=== PATIENT | female | born 1960 | race Caucasian/White ===

== ENCOUNTER → 2021-08-10 | Emergency (ER) | payer MEDICAID ==
[~2021-08-10] VITALS: Ht 152.4 cm; Wt 81.6 kg
[~2021-08-10] MED LIST: CLIN-22 PO; FLOEARD LEFT EYE; HYDR-3917 PO
[2021-08-10 06:15] VITALS: BP_SYST 127
--- NOTE | 2021-08-10 06:15 | NUR ---
Patient came in to the ER c/o pain to the left eye, reports 10/10 PS. 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 Patent symptoms started yesterday with crusting and discharge complaining of pain in the left eye and behind. Patient with no complaints of fever or chills. Patient resp even unlabored, no other remarkable symptoms noted. Patient ambulatory with steady gait.
--- NOTE | 2021-08-10 06:21 | NUR ---
ER in triage examining patient.
[2021-08-10 07:45] LABS: BASOPHILS % (AUTO) 0.2 % (0.0-2.0); EOSINOPHILS # (AUTO) 0.2 K/uL (0.0-0.4); EOSINOPHILS % (AUTO) 4.2 % (0.0-4.0); HEMATOCRIT 42.2 % (36-48); HEMOGLOBIN 13.9 g/dL (12.0-16.0); LYMPHOCYTES # (AUTO) 1.8 K/uL (1.0-5.5); LYMPHOCYTES % (AUTO) 32.9 % (20.5-51.5); MEAN CORPUSCULAR HEMOGLOBIN 29 pg (27-31); MEAN CORPUSCULAR HGB CONC 33 % (32-36); MEAN CORPUSCULAR VOLUME 88 fL (79.0-98.0); MONOCYTES # (AUTO) 0.3 K/uL (0.0-1.0); MONOCYTES % (AUTO) 6.3 % (1.7-9.3); NEUTROPHILS # (AUTO) 3.1 K/uL (1.8-7.7); NEUTROPHILS % (AUTO) 56.4 % (40.0-70.0); PLATELET COUNT (AUTO) 201 K/uL (130-430); RED BLOOD CELL COUNT(AUTO) 4.77 MIL/uL (4.2-6.2); RED CELL DISTRIBUTION WIDTH 13.2 % (9.0-15.0); WHITE BLOOD COUNT (AUTO) 5.5 K/uL (4.8-10.8)
[2021-08-10 07:49] LABS: ANION GAP 11 (5-15); CALCIUM 8.7 mg/dL (8.4-11.0); CHLORIDE 103 mmol/L (98-107); CREATININE 0.87 mg/dL (0.55-1.30); GLUCOSE 104 mg/dL (70-99); SODIUM SERUM 140 mmol/L (136-145); UREA NITROGEN, BLOOD 10 mg/dL (8-21)
[2021-08-10 07:54] LABS: ALANINE AMINOTRANSFERASE 41 U/L (12-78); ALBUMIN 3.6 g/dL (3.4-4.8); ASPARTATE AMINOTRANSFERASE 24 U/L (10-37); TOTAL BILIRUBIN 0.3 mg/dL (0.0-1.0)
[2021-08-10 07:56] LABS: GFR AFRICAN AMERICAN 85 mL/min (>90)
[2021-08-10 07:57] LABS: C-REACTIVE PROTEIN QUANT < 0.2 mg/dL (0-0.5)
--- NOTE | 2021-08-10 08:51 | NUR ---
Patient given written and verbal discharge instructions and verbalizes understanding. ER MD discussed with patient the results and treatment provided. Patient in stable condition. ID arm band removed. Rx of clindamycin, ofloxacin given. Patient educated on pain management and to follow up with PMD. Pain Scale 0/10 Opportunity for questions provided and answered. Medication side effect fact sheet provided.
[2021-08-10 08:53] VITALS: BP_SYST 135
== END | disposition home or self-care (01) ==
LOC: SED 05:16
DX: H05.012 Cellulitis of left orbit (principal)
CPT/HCPCS: 36415; 70480; 76376; 80053; 83605; 85025; 86140; 99284; 99285